=== PATIENT | female | born 1955 | race Caucasian/White ===

== ENCOUNTER 2017-03-13 05:51 | Inpatient (IN) | payer MEDICARE, MEDICAID ==
[2017-03-13] VITALS (12 sets, daily range): BP systolic 101–150; BP diastolic 53–84; PULSE 75–94; RESP 14–19; O2SAT 94–98
[~2017-03-13] VITALS: Ht 160 cm; Wt 97.0 kg
[2017-03-13] MEDS: Lactated Ringer's 1,000 ML IV SCH ×3 (05:00→07:40)
[~2017-03-13 05:51] MED LIST: BACL10TA PO; BUSP5TAB3 PO; CYCL10TA9 PO; DOXY100C2 PO; MELO-253 PO; OMEP20TA86 PO; TRAZ-118 PO
[2017-03-13] MEDS ORDERED: Bupivacaine Liposome 1.3% 20 mL Inj INFILTRATE SCH (06:00)
[2017-03-13] MEDS: Vancomycin Inj 1,500 MG in 0.9% Sodium Chloride 500 ML IV SCH ×2 (06:00→06:16)
[2017-03-13] MEDS ORDERED: CeFAZolin 2 Gm/50 mL D5W IV Premix IV SCH (06:00)
[2017-03-13] MEDS ORDERED: CeFAZolin 2 Gm/50 mL D5W Duplex Bag IV ONE (06:03)
[2017-03-13] MEDS ORDERED: ACET325T51 PO (06:07)
[2017-03-13] MEDS: fentaNYL-PF 50 mCg/mL 2 mL Inj IVPUSH PRN ×3 (06:45→11:20)
[2017-03-13] MEDS ORDERED: fentaNYL-PF 50 mCg/mL 2 mL Inj ONE ×2 (06:45→11:46)
--- NOTE | 2017-03-13 07:17 | PCM.HPANE ---
Patient Data Surgeon Admitting Provider: Attending Provider:Kj Sears DO Primary Care Physician:Pooja Berg Other Provider:Elyse Reza Anesthesia Reason for Visit Right Knee Arthritis RIGHT KNEE ARTHRITIS Ht/WT & BMI Height (Feet): 5 Height (Inches): 3.00 Weight (Kilograms): 97.0 Body Mass Index 37.00 Allergies Coded Allergies: Penicillins (Verified Allergy, Severe, NAUSEA/RASH, 03/06/17) codeine (Verified Adverse Reaction, Severe, ITCHING, 03/06/17) Past Anesthesia History Anesthesia History: Positive for:: Fam Anesthesia Reaction (father had viral hepatitis after surgery - not related to the anesthetic), Denies:: Anesthesia Reactions ("punches and kicks while waking up") Diabetes History Hx Diabetes?: No MRSA MRSA: Yes (6 mos ago- left upper arm ) Medications Hypertension Medication: No Home Meds Incl Beta Thong: No Reported Medications Acetaminophen 325 Mg Cvdmfi400 Mg PO prn For Fever Ref 0 03/13/17 Trazodone 100 Mg Atabrm090 Mg PO HS Ref 0 03/06/17 Omeprazole 20 Mg Tablet.dr20 Mg PO DAILY 03/06/17 Meloxicam 15 Mg Krxhyt30 Mg PO DAILY 30 Days Ref 0 03/06/17 Cyclobenzaprine 10 Mg Rubbty07 Mg PO HS PRN Spasm Ref 0 03/06/17 Buspirone 5 Mg Tablet5 Mg PO BID Ref 0 03/06/17 Baclofen 10 Mg Rmzywt24 Mg PO DAILY Ref 0 03/06/17 Discontinued Reported Medications Doxycycline Hyclate 100 Mg Kyzibox411 Mg PO BID 03/06/17 Acyclovir 400 Mg Fehbls580 Mg PO TID PRN outbreak Ref 0 07/05/15 Trazodone 100 Mg Gsfyon299 Mg PO HS Ref 0 07/05/15 Omeprazole 20 Mg Capsule.dr20 Mg PO DAILY Ref 0 07/05/15 Duloxetine 30 Mg Capsule.dr30 Mg PO BID Ref 0 07/05/15 Cyclobenzaprine 10 Mg Mfvjjx03 Mg PO HS PRN Spasm Ref 0 07/05/15 Buspirone 5 Mg Tablet5 Mg PO BID Ref 0 07/05/15 Baclofen 10 Mg Bhonlf36 Mg PO HS Ref 0 07/05/15 Last Time Dose Received off meloxicam x 8 dd History History of ENT Problems?: Yes HEENT History: Positive for:: TMJ (no nightguard) Denies:: Cataracts Dysphagia Glaucoma Hearing Problem Sinus Problem Denture Type: None Teeth Condition: Within Normal Limits Hx of Heart Problems?: No Cardiovascular History: Denies:: Abdominal Aortic Aneurism Cardiac Surgery Chest Pain Congestive Heart Failure Edema Heart Murmur Hypertension Irregular Heartbeat Pacemaker Thrombophlebitis Hx of Respiratory Problem?: Yes Respiratory History: Positive for:: Asthma (as a child) Denies:: COPD Chest Surgery Dyspnea Emphysema Hemoptysis Oxygen Administration Pneumonia Tuberculosis Use of C-PAP Machine (sleep study 10 years ago - negative ) Use of Inhalers / NEBS Hx Neurologic Problems?: No Neurological History: Denies:: Alzheimer's Disease CVA Dementia Dizziness Headaches Multiple Sclerosis Parkinson's Disease Seizures Hx of GI Problems?: Yes Hx of Problems?: No Genitourinary History: Denies:: Kidney Stones Urinary Tract Infection Female Hx: Denies:: Currently (hysterectomy) Endometriosis Problems with Breasts? Skin History: Denies:: History Skin Disorders? Pressure Ulcers Hx Musculoskeletal Problems?: Yes Musculoskeletal History: Positive for:: Back Injury (sciatica to left hip) Degenerative Joint Fibromyalgia Musculoskeletal Trauma (right knee current problem-) Osteoarthritis Denies:: Joint Replacement Myasthenia Gravis Systemic Lupus Hx of Psycho/Social Problems?: Yes Psycho Social History: Positive for:: Anxiety Hx Depression Denies:: Bipolar Disorder Hx Surgeries?: Yes (otto, hyst, knee scope) Hx Any Other Health Problems?: Yes Other History: Positive for:: Cancer (skin CA x2) Hospitalization Denies:: Thyroid Disease History Blood Transfusions: Positive for:: Accept Blood Products? Denies:: Blood Transfusions Hx Diabetes: No Hx Alcohol Use: YesAlcoholic Drinks Per Day: 2 drinks weeklyHx Substance Use: Yes (occasional marijuana- inhaled ) Smoking Status: Current Every Day Smoker Light Tobacco Smoker Have You Smoked inLast 12 mo: Yes (3 cigarettes ) Stop/Bang S-Snoring: Do You Snore Loudly: Yes T-Tired: feel tired, fatigued: No O-Obsered: Observed not breath: No P-Blood Pressure: treated: No B- Body Mass Index > 35 kg/m2: Yes A- Age over 50: Yes N- Neck Large Circumference: No G- Gender Male: No SPENCER Total Score: 3 Risk Assessment Category Category 1A: Patient has history of documented sleep apnea, and HAS NOT received any narcotic, sedative or anesthesia administration during this stay. Category 1B: Patient has history of documented sleep apnea, and HAS received any narcotic , sedative or anesthesia administration during this stay Category 2: Patient has SUSPECTED Obstructive Sleep Apnea, and HAS received any narcotic , sedative or anesthesia administration during this stay. Category 3: Patient has SUSPECTED Obstructive Sleep Apnea and HAS NOT received narcotic, sedative or anesthesia administration during this stay. Category 4: Outpatient in Procedural Areas with known sleep apnea or who screen positive for High Risk via the STOP/BANG questionnaire. Exam Exam Vital Signs Vital Signs Date Time Temp Pulse Resp B/P Pulse Ox O2 Delivery O2 Flow Rate FiO2 03/13/17 06:10 36.4 89 18 120/75 96 Room Air General Appearance: Alert, Oriented X3 HEENT/AIRWAY: MP 2, Neck Movement (FROM) Lungs: Clear to Auscultation, Clear to Percussion Heart: Exam Unremarkable, Regular Rate/Rhythm Meds/Labs/Diagnostics Admission Meds Current Medications Vancomycin HCl 1500 mg/Sodium Chloride 500 ml @ 333.333 mls/hr PREOP IV Last administered on 03/13/17 06:16; Start 03/13/17 at 06:00; Stop 03/13/17 at 17:00 Lactated Ringer's (Lr) 1,000 ml @ 120 mls/hr Q8H20M IV Last administered on 05:53; Start 03/13/17 at 05:00; Stop 03/13/17 at 13:19 Plan Impression Patient chart reviewed, patient interviewed and anesthestic plan with risks, benefits, and alternatives discussed, and informed consent obtained. ASA Physical Status: ASA3 Severe Disease (obesity; smoker) Anesthetic Plan: Regional Block (FNB SSB), SAB (with GA as backup) Bene/Risks/Altern/Consents: Yes HP Complete Prior to Induction: Yes Jono Galvez MD Mar 13, 2017 07:09
[2017-03-13] MEDS ORDERED: Labetalol 5 mg/mL 20 mL Inj IV PRN (08:35)
[2017-03-13] MEDS ORDERED: Phenylephrine 10,000 mCg/mL Inj IVPUSH PRN (08:35)
[2017-03-13] MEDS ORDERED: EPHEDrine Sulfate 50 mg/mL Inj IVPUSH PRN (08:35)
[2017-03-13] MEDS ORDERED: HYDROmorphone 1 mg/mL Inj IVPUSH PRN (08:35)
[2017-03-13] MEDS ORDERED: Atropine 0.4 mg/mL Inj IVPUSH PRN (08:35)
[2017-03-13] MEDS ORDERED: Ondansetron 2 mg/mL 2 mL Inj IVPUSH PRN (08:35)
[2017-03-13] MEDS ORDERED: fentaNYL-PF 50 mCg/mL 2 mL Inj IVPUSH PRN (08:35)
[2017-03-13] MEDS ORDERED: Lactated Ringer's 1,000 ML IV SCH (08:35)
[2017-03-13] MEDS ORDERED: MetoCLOpramide 5 mg/mL 2 mL Inj IVPUSH PRN (08:35)
[2017-03-13] MEDS ORDERED: Lactated Ringer's 500 ML IV PRN (08:35)
[2017-03-13] MEDS ORDERED: 0.9% Sodium Chloride 10 mL Inj INFILTRATE ONE (08:48)
[2017-03-13] MEDS ORDERED: Lactated Ringer's 1,000 ML IV ONE (09:27)
[2017-03-13] MEDS ORDERED: Ketorolac 15 mg/mL Inj IVPUSH PRN (10:00)
[2017-03-13] MEDS ORDERED: Magnesium Hydroxide 10 mL Oral Concentration PO PRN (10:00)
[2017-03-13] MEDS ORDERED: diphenhydrAMINE 25 mg Capsule PO PRN (10:00)
[2017-03-13] MEDS ORDERED: Polyethylene Glycol (PEG) 17 Gm Powder PO PRN (10:00)
[2017-03-13] MEDS ORDERED: HYDROmorphone 2 mg/mL Inj IVPUSH PRN (10:00)
--- NOTE | 2017-03-13 10:41 | DRSVH ---
PROCEDURE: X-RAY RIGHT KNEE, ONE OR TWO VIEWS ([id number]) INDICATIONS: POST OPERATIVE RIGHT KNEE SURGERY TECHNIQUE: 2 view(s) of the knee acquired. COMPARISON: None. FINDINGS: Bones: Patient is status post knee joint arthroplasty. Hardware components are in expected position s. Visualized bony structures are intact. Soft tissues: Overlying postoperative changes are noted. IMPRESSION: Status post knee arthroplasty. Dictated by: Karley Jameson M.D. on 03/13/2017 at 10:39 Approved by: Karley Jameson M.D. on 03/13/2017 at 10:39
--- NOTE | 2017-03-13 10:56 | OP ---
[address] [address] OPERATIVE REPORT PATIENT: ARIANA WASHINGTON : 1955 MR#: [id number] ADMIT: 03/13/2017 JOB ID: [id number] DATE OF SURGERY: 03/13/2017 PREOPERATIVE DIAGNOSIS(ES): Right knee degenerative joint disease. POSTOPERATIVE DIAGNOSIS(ES): Right knee degenerative joint disease. PROCEDURE: Right total knee arthroplasty. SURGEON: Kj Sears DO MOVIE THEATER USHER: Shahana Story PA-C INDICATIONS: The patient is a 62-year-old female with right knee severe degenerative arthritis, which had failed conservative measures, and she wished to proceed with a total knee arthroplasty. We discussed the risks, benefits, and possible complications of surgery including, but not limited to injury to nerves and vessels, infection, bleeding, incomplete relief of symptoms, stiffness, and need for additional procedures, deep venous thrombosis. The patient had good understanding, all questions were answered, and she wished to proceed. We discussed that she is at increased risk for perioperative complications as she continues to smoke. She refuses to use Lovenox for DVT prophylaxis and therefore will use Xarelto. A geological survey field assistant was required for the successful completion of this procedure. PROCEDURE IN DETAIL: The patient is brought to the operating room. She was given a preoperative antibiotic, femoral nerve block, and spinal anesthetic. The right lower extremity was sterilely prepped and draped. A tourniquet was used for hemostasis. An incision was made over the anteroapical medial knee and dissection was carefully carried through the subcutaneous tissue. Electrocautery was used for hemostasis. A split was then made in the quad tendon leaving a cuff of tissue for repair. This was taken along the medial retinaculum onto the proximal medial tibial face and the patella was then everted and a small medial release was performed in order to gain exposure. A portion of the fat pad was removed and the femur was then instrumented with the intramedullary drill and guide mindy. A 10 mm distal femoral resection was planned and the cutting block was pinned in position and the cut was performed. The tibia was then addressed with an extramedullary tibial cutting guide and the tibial cut was performed completed with an osteotome and the tibia was then sized, felt to be a size 2. The femur was sized felt to be a size 3 with 3 degrees of external rotation. The notch cut was performed and cutting block was placed and the cuts were made. The knee was then trialed beginning with the 3 femur to tibia and a 7 mm poly, which fit quite nicely and allowed for full flexion and full extension with equal gaps medially and laterally. Also the meniscus was removed at this time. The patella was resurfaced. She had full-thickness cartilage loss. The patella was quite thin. Unfortunately measuring the thickness of about 18. It was cut to a thickness of 14 and then a 32 mm patella was chosen, drilled for, and trialed. Had excellent tracking. The tibia was drilled and punched. The femur was drilled and the bony surfaces were washed and dried. The components were cemented into position beginning with a DePuy Attune size 2 tibia followed by the DePuy Attune 3 femur, posterior stabilized fixed bearing, construct and the 32 mm patellar button. All excess cement was removed. Once the cement had been allowed to polymerize we did additional trials and elected to go with the size 7 thickness poly which was impacted in position. Had excellent fixation allowed for full flexion, full extension. The tourniquet was let down. Electrocautery was used for hemostasis. The wound was then closed with interrupted #1 Surgilon to repair the medial retinaculum and quad tendon and some 0-Vicryl was added as well. The subcu was closed with 2-0 Vicryl. The skin was closed with a running subcuticular 3-0 V-Loc suture. Mixture of Exparel and saline was added as an adjunct local anesthetic. Sterile dressings were applied. Patient tolerated the procedure well. Blood loss was minimal. POSTOPERATIVE PROTOCOL: Have the patient weightbear to tolerance using a walker for ambulation although she will need to wait for the femoral nerve to nerve block to resolve before she can accomplish this and will have her work with physical therapy. Will plan to use [place] 7.5/325 for pain and Xarelto for 10-12 mg daily for 12 days for DVT prophylaxis as she refuses Lovenox and is at increased risk for DVT given her smoking.
--- NOTE | 2017-03-13 11:18 | PCM.ANEP1 ---
Post Anesthesia PACU Phase 1 Assessment Vital Signs Vital Signs Date Time Temp Pulse Resp B/P Pulse Ox O2 Delivery O2 Flow Rate FiO2 03/13/17 10:50 77 17 135/58 98 03/13/17 10:35 79 19 126/67 98 03/13/17 10:20 16 98 03/13/17 10:20 80 15 122/62 98 03/13/17 10:15 79 15 105/56 98 03/13/17 10:10 78 17 117/54 98 03/13/17 10:05 36.6 75 14 101/53 97 Room Air 03/13/17 06:10 36.4 89 18 120/75 96 Room Air Anesthetic Administered: SAB Level of Alertness: Awake, talking PANTOJA's with Equal Strength: No (SAB) Pain: No Nausea or Vomiting: No CV Function & Hydration Stable: Yes Airway Device: Oxygen Delivery: Simple Mask Lungs: Clear to Auscultation, Clear to Percussion Dermatome Level: T12 (Symphysis Pubis) PACU Phase 2 Assessment Complications: No Follow up Care: No Patient Instructions Provided: N/A Jono Galvez MD Mar 13, 2017 11:18
--- NOTE | 2017-03-13 11:35 | NUR ---
Arrived on Unit Patient arrived on floor from PACU in stable condition. Slight nausea when patient got to room. VSS. Reported slight pain. A&Ox3. Dressing CDI. Patient orientated to call light and bed. Once assessment was completed, patient reported 10/10 knee pain. Ice placed on knee. Toradol, oxycodone, and Vistaril given. Call light and tray table within reach. Will continue to monitor patient hourly.
[2017-03-13] MEDS ORDERED: Propofol 10,000 mCg/mL 20 mL Inj ONE (11:46)
[2017-03-13] MEDS ORDERED: EPHEDrine/NS 5 mg/mL 5 mL Syringe ONE (11:46)
[2017-03-13] MEDS ORDERED: Phenylephrine/NS 100 mCg/mL 10 mL Syringe IVPUSH ONE (11:46)
[2017-03-13] MEDS: hydrOXYzine Pamoate 25 mg Capsule PO PRN ×3 (12:27→20:46)
[2017-03-13] MEDS: 0.9% Sodium Chloride 1,000 ML IV SCH ×2 (12:41→19:57)
[2017-03-13] MEDS: Sodium Chloride LOK Flush 10 mL Syringe IV SCH (16:30)
[2017-03-13] MEDS: CeFAZolin Inj 2 GM in IV Premix 1 EACH IV SCH (17:00)
[2017-03-13] MEDS: HYDROcodone-APAP 7.5-325 mg Tablet PO PRN ×2 (17:01→20:47)
[2017-03-13] MEDS: Ondansetron 2 mg/mL 2 mL Inj IVPUSH PRN (17:59)
[2017-03-13] MEDS: Senna-Docusate 8.6-50 mg Tablet PO SCH (20:41)
[2017-03-13] MEDS: BusPIRone 15 mg Dividose Tablet PO SCH (20:42)
[2017-03-14 00:17] VITALS: BP 142/79; PULSE 92; RESP 17; O2SAT 95
[2017-03-14] MEDS: Sodium Chloride LOK Flush 10 mL Syringe IV SCH ×3 (00:30→15:50)
[2017-03-14] MEDS: CeFAZolin Inj 2 GM in IV Premix 1 EACH IV SCH (00:51)
[2017-03-14] MEDS: HYDROcodone-APAP 7.5-325 mg Tablet PO PRN ×4 (04:46→16:39)
[2017-03-14] MEDS: hydrOXYzine Pamoate 25 mg Capsule PO PRN ×5 (04:46→20:48)
[2017-03-14 04:50] VITALS: BP 115/77; PULSE 96; RESP 17; O2SAT 93
--- NOTE | 2017-03-14 05:22 | NUR ---
Pain Pain management effective this shift, c/o 10/10 pain previous shift, down to 6/10. Able to sleep comfortably. SBA BSC, tolerates activity well. Will continue to monitor, care continues.
[2017-03-14 05:56] LABS: BASOPHILS % (AUTO) 0.1 % (0-3); MONOCYTES % (AUTO) 12.6 % (4-12); Mean Corpuscular Volume 80.1 fL (81-100); NEUTROPHILS % (AUTO) 66.1 % (40-74); Platelet Count 205 bil/L (150-400)
[2017-03-14] MEDS: 0.9% Sodium Chloride 1,000 ML IV SCH ×2 (05:57→09:34)
[2017-03-14] MEDS: Pantoprazole 20 mg ER24 Tablet PO SCH (08:23)
[2017-03-14] MEDS: Senna-Docusate 8.6-50 mg Tablet PO SCH ×2 (08:24→20:30)
[2017-03-14] MEDS: BusPIRone 15 mg Dividose Tablet PO SCH ×2 (08:25→20:30)
[2017-03-14] MEDS ORDERED: HYDROmorphone 1 mg/mL Inj IVPUSH PRN (09:50)
[2017-03-14 10:26] VITALS: BP 144/80; PULSE 87; RESP 18; O2SAT 96
[2017-03-14] MEDS: Ondansetron 2 mg/mL 2 mL Inj IVPUSH PRN (10:30)
--- NOTE | 2017-03-14 10:49 | PCM.PNORTH ---
Subjective Date of Service: Mar 14, 2017 Visit Information: Reason for Visit Right Knee Arthritis Surgery/Surgery Date R TKA 03/13/17 Post-Op Day # 1 Date of Admission: Mar 13, 2017 at 11:45 Hospital Day # Subjective Patient states she has 10/10 pain in her leg. She states the majority og her pain is a sharp stabbing pain in the front of her knee as well as a throbbing pain in her calf and back of her knee. She has taken oral and injectable pain medications and has had little relief. Postop General: No Shortness of Breath, No Chest Pain, Good Appetite Pain Management: PO, IV Push Objective Exam Objective Sitting up in bed Vital Signs and I/O Vital Sign - Last Date Time Temp Pulse Resp B/P Pulse Ox O2 Delivery O2 Flow Rate FiO2 03/14/17 10:26 37.1 87 18 144/80 96 Room Air Intake and Output 03/13/17 03/13/17 03/14/17 Cumulative From/Thru 15:00 23:00 07:00 03/06/17 11:54 - 03/14/17 06:14 Intake Total 1360 ml 1711 ml 2444 ml 6015 ml Output Total 850 ml 1650 ml 2500 ml Balance 1360 ml 861 ml 794 ml 3515 ml Intake Oral 1260 ml 1200 ml 2460 ml IV Total 1360 ml 451 ml 1244 ml 3555 ml Output Urine Total 450 ml 1650 ml 2100 ml Emesis 400 ml 400 ml # Bowel Movements 0 0 Lab & Micro Results Laboratory Tests Test 03/14/17 05:11 White Blood Count 9.9th/mm3 (3.8-10.1) Red Blood Count 3.87mil/mm3 (3.90-5.20) Hemoglobin 9.3g/dL (12.0-15.6) Hematocrit 31.0% (35.0-46.0) Mean Corpuscular Volume 80.1fL (81-100) Mean Corpuscular Hemoglobin 24.0pg (27.0-35.0) Mean Corpuscular Hemoglobin Concent 30.0% (32.0-37.0) Red Cell Distribution Width 18.1% (12.3-15.4) Platelet Count 205bil/L (150-400) Neutrophils (%) (Auto) 66.1% (40-74) Lymphocytes (%) (Auto) 19.0% (14-46) Monocytes (%) (Auto) 12.6% (4-12) Eosinophils (%) (Auto) 2.0% (0-5) Basophils (%) (Auto) 0.1% (0-3) Sodium Level 135mEq/L (134-144) Potassium Level 4.5mEq/L (3.5-5.2) Chloride Level 103mEq/L (97-108) Carbon Dioxide Level 21mmol/L (18-29) Blood Urea Nitrogen 11mg/dL (8-27) Creatinine 0.54mg/dL (0.57-1.00) Estimat Glomerular Filtration Rate 164mL/min (>59) Glucose Level 94mg/dL (60-99) Calcium Level 8.5mg/dL (8.5-10.1) Result Diagram: 03/14/1751003/14/17510 General Appearance: Alert, Oriented X3, Cooperative, Moderate Distress Extremities: Distal Pulses Palpable, Warm, Thigh & Calf Soft/Nontender (Calf tender to palp), Tenderness/Swelling Noted (Foot moderately swollen) Postop Sensory Motor: Distal Motor Intact, Movement in Toes, Distal Sensation Intact, NVI Distally Activity: Ambulate with PT (WBAT c FWW when cleared of DVT by U/S) Assessment & Plan Impression POD#1 right TKA Problems: Plan Patient is having severe pain, particularly in the back of her calf. She is tender to palpation as well as with dorsiflexion. Tee wrap was loosened by myself and cotton padding removed on lower leg in preparation for an ultrasound. I will order an ultrasound of the calf to r/o DVT. Pain medication montelongo we will change her regiment to IV Tylenol with Roxycodone until her pain is better controlled. We will start the IV Tylenol when she is next able to take a Percocet. We will discontinue Percocet and instead to IV Tylenol and Maxine. Weightbearing: Weightbearing as tolerated for a walker. We will hold off on ambulation until after the ultrasound is done. DVT prophylaxis: Xarelto 10mg QD x 6 weeks Physical therapy for transfers, progressive ambulation, strengthening Wound care: Dressings will be changed to island dressing tomorrow. Please make sure she has her tee wrap around her leg after her U/S. Analgesia: Begin IV Tylenol and Roxycodone regiment as described above. Discharge plan: Discharge home in 1-2 days. Start outpatient physical therapy next week. Follow-up plan: In 2 weeks at [facility]] with PA for wound check and at [address] Sears with x-rays Angela Avendano PA-C Mar 14, 2017 10:49
[2017-03-14] MEDS ORDERED: Acetaminophen IV 1,000 MG in IV Premix 1 EACH IV PRN (10:50)
--- NOTE | 2017-03-14 16:44 | NUR ---
Pain Pt having 10/10 pain at 1030 this AM, sharp pain in knee and palpable pain in calf and with flexion. Pain medications given and ice applied, pt did not like IV Dilaudid and felt like it made her dizzy and nauseous. Jennifer WALDRON and she came to room and loosened CHAPITO wrap on leg and ordered US. Pt resting more comfortably, IV Tylenol available if needed. Continue q1 hour monitoring.
--- NOTE | 2017-03-14 17:45 | DRSVH ---
PROCEDURE: US VEINOUS LEG DUPLEX UNILATERAL, RIGHT INDICATIONS: Acute calf pain of right leg TECHNIQUE: Real-time imaging, as well as color and pulse Doppler interrogation, were performed of the lower extr emity deep veins from the inguinal ligament to the popliteal fossa. COMPARISON: None. FINDINGS: The deep veins are normally compressible, and free of intraluminal thrombus. Color and pu lse Doppler demonstrate normal phasic intraluminal flow. There is normal augmentation response to di stal compression maneuver. IMPRESSION: No evidence of deep vein thrombosis involving the right lower extremity. Dictated by: Morena Snider MD, PhD on 03/14/2017 at 17:43 Approved by: Morena Snider MD, PhD on 03/14/2017 at 17:44
--- NOTE | 2017-03-14 17:56 | NUR ---
Social Work- Initial Assessment/Readiness for D/C/ Multidisciplinary Rounds Data: See Initial Assessment and Advance Directive Intervention for additional information. Pt discussed in rounds. Pt is POD 1. Pt is not ready for discharge at this time. Pt is anticipated to return home at d/c. Pt is a 62 year old female admitted for right TKA on 03/13/17 per H&P. Pt's insurance is [employer] and [facility] Supp. Pt's PCP is AILEEN Castillo. Pt's readmit risk score is not listed at this time. SW met with pt at bedside regarding discharge plan, SW role explained. Pt alert and oriented x3. Pt's capacity for self-care assessed. Pt resides in [place] alone. Pt is independent with ADLs and self-care. Pt uses a cane typically and also has a walker for use. Pt drives. Pt has no history with HH services. Pt has no history with SNF services. Pt declined DPOA information. Pt reports that she has scheduled outpt PT services and her son will be assisting her at home after discharge. Pt provided with d/c planning checklist and phone number and plan written on board. Pt to d/c home with her son to transport via POV, outpt PT likely. No d/c needs anticipated. SW will continue to follow. Assessment: Pt who is independent at baseline, capable of self-care Plan: Pt to d/c home with her son to transport via POV. No anticipated d/c needs, SW will continue to follow. CHERELLE Walker Addendum: 03/14/17 at 1759 by GEORGE SCHMIDT Amended: Links added.
[2017-03-14 19:48] VITALS: BP 158/72; PULSE 100; RESP 18; O2SAT 92
[2017-03-15] MEDS: Sodium Chloride LOK Flush 10 mL Syringe IV SCH ×3 (00:51→16:30)
[2017-03-15] MEDS: hydrOXYzine Pamoate 25 mg Capsule PO PRN ×3 (00:51→16:46)
[2017-03-15] MEDS: 0.9% Sodium Chloride 1,000 ML IV SCH ×2 (01:57→11:57)
--- NOTE | 2017-03-15 04:07 | NUR ---
Pain Patient A&OX3 and pleasant this evening. Complains of 10/10 right knee pain. 10mg oxycodone PO and PO Vistaril given. Upon further reassessment patient has been sleeping and appears comfortable. 2L O2 via NC worn while patient is sleeping to maintain sats > 92%. TRIPLE VALVE MECHANIC applied. Will continue to monitor and continue Q1 hour checks.
[2017-03-15] MEDS: Pantoprazole 20 mg ER24 Tablet PO SCH (05:33)
[2017-03-15 05:40] LABS: BASOPHILS % (AUTO) 0.1 % (0-3); EOSINOPHILS % (AUTO) 1.3 % (0-5); MONOCYTES % (AUTO) 12.4 % (4-12); Mean Corpuscular Hemoglobin 24.2 pg (27.0-35.0); Mean Corpuscular Volume 80.1 fL (81-100); NEUTROPHILS % (AUTO) 73.7 % (40-74); Platelet Count 201 bil/L (150-400)
[2017-03-15 05:41] VITALS: BP 138/69; PULSE 103; RESP 20; O2SAT 95
[2017-03-15] MEDS: Senna-Docusate 8.6-50 mg Tablet PO SCH (08:30)
--- NOTE | 2017-03-15 08:33 | PCM.PNORTH ---
Subjective Date of Service: Mar 15, 2017 Visit Information: Reason for Visit Right Knee Arthritis Surgery/Surgery Date R TKA 03/13/17 Post-Op Day # Date of Admission: Mar 13, 2017 at 11:45 Hospital Day # Subjective Found patient awake this morning with head of bed elevated. No complaints of pain at this time. Patient did appear mildly groggy as if overmedicated during our conversation. We have discussed the fact that she did not participated with formal physical therapy yesterday on postoperative day 1 and today would typically be her discharge today on postop day #2. I have encouraged the patient to participated with therapy today in anticipation of discharge. Patient does indicate that her son will be with her over the next few days after discharge and I have advised her that she will need to be mobile in order to manage being at home. I will also advise patient that she will not be pain- free during this process and that there will be some discomfort and we will make every effort to manage that while not giving her so much medication that she become sleepy. I have advised her that we will likely reduce her pain medication today so that she is more alert and that there may be some discomfort involving with this. Postop General: No Complaints, No Shortness of Breath, No Chest Pain, Good Appetite Pain Management: PO Objective Exam Objective Awake and alert and mildly groggy. Mild tachycardia Interoperative dressings clean dry and intact Interoperative dressing is changed to postoperative dressing today with Silverlon in place. Calf and thigh are mildly swollen but soft and nontender Toe wiggle and sensation are intact at right lower extremity distally Bilateral RAÚL hose are in place. SCDs are absent. Gerber absent Vital Signs and I/O Vital Sign - Last Date Time Temp Pulse Resp B/P Pulse Ox O2 Delivery O2 Flow Rate FiO2 03/15/17 05:41 36.8 103 20 138/69 95 Nasal Cannula 2.00 Intake and Output 03/14/17 03/14/17 03/15/17 Cumulative From/Thru 15:00 23:00 07:00 03/06/17 11:54 - 03/15/17 06:45 Intake Total 2576 ml 800 ml 9391 ml Output Total 800 ml 1420 ml 4720 ml Balance 1776 ml -620 ml 4671 ml Intake Oral 1200 ml 800 ml 4460 ml IV Total 1376 ml 4931 ml Output Urine Total 800 ml 1420 ml 4320 ml Emesis 400 ml # Bowel Movements 0 0 0 Lab & Micro Results Laboratory Tests Test 03/15/17 05:07 White Blood Count 12.1th/mm3 (3.8-10.1) Red Blood Count 3.72mil/mm3 (3.90-5.20) Hemoglobin 9.0g/dL (12.0-15.6) Hematocrit 29.8% (35.0-46.0) Mean Corpuscular Volume 80.1fL (81-100) Mean Corpuscular Hemoglobin 24.2pg (27.0-35.0) Mean Corpuscular Hemoglobin Concent 30.2% (32.0-37.0) Red Cell Distribution Width 18.0% (12.3-15.4) Platelet Count 201bil/L (150-400) Neutrophils (%) (Auto) 73.7% (40-74) Lymphocytes (%) (Auto) 12.3% (14-46) Monocytes (%) (Auto) 12.4% (4-12) Eosinophils (%) (Auto) 1.3% (0-5) Basophils (%) (Auto) 0.1% (0-3) Sodium Level 136mEq/L (134-144) Potassium Level 4.5mEq/L (3.5-5.2) Chloride Level 101mEq/L (97-108) Carbon Dioxide Level 23mmol/L (18-29) Blood Urea Nitrogen 5mg/dL (8-27) Creatinine 0.43mg/dL (0.57-1.00) Estimat Glomerular Filtration Rate 214mL/min (>59) Glucose Level 100mg/dL (60-99) Calcium Level 8.8mg/dL (8.5-10.1) Result Diagram: 03/15/17 0507 03/15/17 0507 General Appearance: Alert, Oriented X3, Cooperative, No Acute Distress Extremities: No Compartment Syndrom Noted, Thigh & Calf Soft/Nontender Postop Sensory Motor: Distal Motor Intact, Movement in Toes, Distal Sensation Intact Activity: Activity per PT, Ambulate with PT (WBAT on the right lower extremity using a front wheeled walker.) Catheters: None Assessment & Plan Impression Patient is a 62-year-old female who was undergone elective right total knee arthroplasty on 03/13/2017. Her first postop day was spent working on pain control and she received no physical therapy secondary to this. She is getting a slow start for discharge to home on postop day 2 but this will be anticipated today. Problems: Plan Postoperative day #2 from right total knee arthroplasty performed on 03/13/[address] Kj Sears. Note: Patient has missed her entire first postop day physical therapy secondary to pain issues. Weightbearing as tolerated on the right lower extremity using front wheel walker Continue formal physical therapy for mobility, gait and safety. Patient will begin outpatient physical therapy as soon as possible after discharge. Patient has been given therapy order. Continue by mouth pain management with [place] 7.5 and Vistaril. Continue Xarelto 10 mg 12 days postop with transition to ASA 325 mg twice a day for an additional 4 weeks postop for DVT prophylaxis. Interoperative dressings changed this morning and Silverlon is rewet. Wound is in good condition and island dressing is placed. Nursing please discontinue any IV pain medication. Nursing please move the patient to [place] 7.5 in an effort to reduce apparent grogginess possibly due to her pain meds. Nursing please use left lower extremity SCD while patient is in bed. Follow-up in 2 weeks S [facility] orthopedic clinic with mid-level provider for wound check and suture removal. Follow-up in 6 weeks at [facility] orthopedic clinic with Dr. Kj Sears with right 2 view knee x-ray on arrival Anticipate discharge today on postop day #2, 03/15/2017 after physical therapy has seen patient and if she is cleared for safe discharge. Milton Rivera PA-C Mar 15, 2017 08:32
[2017-03-15] MEDS: BusPIRone 15 mg Dividose Tablet PO SCH (08:35)
[2017-03-15] MEDS: HYDROcodone-APAP 7.5-325 mg Tablet PO PRN ×3 (09:24→18:19)
[2017-03-15 11:39] VITALS: BP 110/67; PULSE 93; RESP 20; O2SAT 93
--- NOTE | 2017-03-15 16:20 | PCM.DIORTH ---
Ortho Discharge Instruction Date of Service: Mar 15, 2017 Dates of Hospitalization Date of Hospital Admission Mar 13, 2017 at 11:45 Providers Admitting Physician: Kj Sears DO Primary Care Physician: Pooja Berg Attending Physician: Kj Sears DO Diet Discharge Diet: No restrictions Activity Discharge Activity-General: Be up and about, Balance rest and activity, Elevate & ice extremity (ice 6-10 times a day) Right Lower Extremity: Weight Bearing as tolerated Discharge Assist Device: Front Wheeled Walker Dressing and Incisional Care Discharge Dressing Care: Keep dressing clean, dry & intact Discharge Hygiene: May shower (see instructions below), DO NOT soak incision under water (for 2 weeks), NO bathtub, hot tub or whirlpool (for 2 weeks) Additional Instructions Discharge Instructions Weightbearing: Weightbearing as tolerated with walker On Sunday change the current dressing. Get the silver dressing wet with the saline in the syringe, and apply a new pad. Tear stockings will hold on the pad. On Sunday if there is no drainage from the wound, you may shower and get the leg wet. That soap and water run over the leg. Past it dry with a towel and applied a new dressing. Every hour of the day you are awake, get up and do some exercise for your leg: Get up and walk, do exercise or stretches. It is okay to push it with bending. It will be sore but you will not harm it. DVT prophylaxis: Xarelto 10 mg once a day for 12 more days Wear the compression stockings for 4 weeks on the surgical leg and for 2 weeks on the left leg Follow Up Plan Follow Up Plan As [facility] in 2 weeks with [facility]IVO for wound check, and at [address] Sears with x-rays Call your provider for: Fever, Chills, Shortness of breath, Vomitting, Drainage at incision (that is increasing), Wound redness (that is increasing), Increasing pain (for no reason) Shahana Story PA-C Mar 15, 2017 16:20
--- NOTE | 2017-03-15 16:35 | NUR ---
Social Work- Discharge Data: EMR reviewed. Pt to discharge today. Pt walked fifty feet with PT and her son is available to assist at her home. No d/c needs identified. Assessment: Pt who is independent at baseline Plan: Pt to d/c home with son to transport via POV. No additional d/c needs. Emmy Noyola MSW
[2017-03-15] MEDS ORDERED: RIVA10TA PO (16:36)
[2017-03-15] MEDS ORDERED: HYDR-3797 PO (16:36)
[2017-03-15] MEDS ORDERED: DOCU-41 PO (16:36)
[2017-03-15] MEDS ORDERED: Hydrocodone/Acetaminophen PO (16:36)
--- NOTE | 2017-03-15 16:39 | PCM.DC.ORT ---
Discharge Summary Date of Service: Mar 15, 2017 Date of Hospital Admission: Mar 13, 2017 at 11:45 Date of Surgery: Mar 13, 2017 Date of Discharge: Mar 15, 2017 Reason for Hospitalization: Right knee arthritis Procedures Performed: Right total knee arthroplasty Hospital Course: The patient was admitted to the hospital on 03/13/2017 and underwent the above procedure. Antibiotic prophylaxis consisting of Ancef and vancomycin. The surgeon was Dr. Sears. A Gerber was placed perioperatively. Patient tolerated the procedure well and was transferred to recovery room in stable condition. Gerber was discontinued on postop day 1. Patient had physical therapy to work on ambulation and transfers. Weightbearing as tolerated with walker. Pain was managed with Dilaudid, [place] 7.5, Vistaril, Toradol. DVT prophylaxis: Xarelto 10 mg Qday, SCD's, RAÚL may. Patient progressed well with physical therapy and on POD-2 was discharged home. She will start outpatient physical therapy next week. Follow-up: at [facility] 2 weeks postop for wound check and at [address] Sears with x-ray Diagnosis at Time of Discharge Status post right total knee arthroplasty Problems: Disposition: Discharged home in stable condition Additional Information As [facility] in 2 weeks with PA for wound check, and at [address] Sears with x-rays Discharge Instructions: Discharge Activity-General: Be up and about, Balance rest and activity, Elevate & ice extremity (ice 6-10 times a day) Right Lower Extremity: Weight Bearing as tolerated Discharge Assist Device: Front Wheeled Walker Discharge Dressing Care: Keep dressing clean, dry & intact Discharge Hygiene: May shower (see instructions below), DO NOT soak incision under water (for 2 weeks), NO bathtub, hot tub or whirlpool (for 2 weeks) Weightbearing: Weightbearing as tolerated with walker On Sunday change the current dressing. Get the silver dressing wet with the saline in the syringe, and apply a new pad. Tear stockings will hold on the pad. On Sunday if there is no drainage from the wound, you may shower and get the leg wet. That soap and water run over the leg. Past it dry with a towel and applied a new dressing. Every hour of the day you are awake, get up and do some exercise for your leg: Get up and walk, do exercise or stretches. It is okay to push it with bending. It will be sore but you will not harm it. DVT prophylaxis: Xarelto 10 mg once a day for 12 more days Wear the compression stockings for 4 weeks on the surgical leg and for 2 weeks on the left leg Call your provider for: Fever, Chills, Shortness of breath, Vomiting, Drainage at incision (that is increasing), Wound redness (that is increasing), Increasing pain (for no reason) ([Hydrocodone/Acetaminophen]) 1 TABLET TABLET 1-2 TABLET PO Q4H PRN PRN For Moderate Pain Baclofen (Baclofen) 10 Mg Tablet 10 MG PO DAILY Buspirone (Buspirone) 5 Mg Tablet 5 MG PO BID Cyclobenzaprine (Cyclobenzaprine) 10 Mg Tablet 10 MG PO HS PRN PRN Spasm Docusate Sodium (Colace) 100 Mg Capsule 100 MG PO BID PRN PRN For Constipation Hydroxyzine Pamoate (HydrOXYzine Pamoate) 25 Mg Capsule 25 MG PO Q6H PRN PRN For Spasm and/or Restlessness Omeprazole (Omeprazole) 20 Mg Tablet. 20 MG PO DAILY Rivaroxaban (Xarelto) 10 Mg Tablet 10 MG PO DAILY Trazodone (Trazodone) 100 Mg Tablet 200 MG PO HS Shahana Story PA-C Mar 15, 2017 16:39
--- NOTE | 2017-03-15 19:01 | NUR ---
discharging went over discharge instructions with pt, she was able to reaffirm teachings, understands how to do her wound care. She already has f/u appt scheduled. Good pain control, pt eating/drinking well.
--- NOTE | 2017-03-15 19:39 | NUR ---
DISCHARGED; home per wheelchair with son at approx. 1921 with discharge papers and belongings by wood lathe operator.
== END 2017-03-15 19:22 | disposition home or self-care (01) | DRG 470 ==
LOC: SAS 05:51 → OSC 11:45
PROVIDERS: ADMIT Orthopaedic Surgery; ATTEND Orthopaedic Surgery
PROC: 0SRC0J9 Replacement of Right Knee Joint with Synthetic Substitute, Cemented, Open Approach (ICD-10-PCS; principal; 2017-03-13 07:30)
DX: M17.11 Unilateral primary osteoarthritis, right knee (principal)